=== PATIENT | female | born 1990 | race African-American/Black ===

== ENCOUNTER 2019-04-17 20:17 | Emergency (ER) | payer OTHER ==
[~2019-04-17] VITALS: Ht 154.9 cm; Wt 116.6 kg
[2019-04-17 22:12] LABS: ABSOLUTE NEUTROPHILS 6.8 thou/uL (1.4-8.2); BASOPHILS 0.9 % (0.0-2.0); EOSINOPHILS 2.4 % (0.0-3.0); HEMATOCRIT 35.6 % (37.0-47.0); LYMPHOCYTES 24.8 % (24.0-44.0); MCH 24.2 pg (26.0-34.0); MCHC 30.8 g/dL (28.0-37.0); MCV 78.5 fL (80.0-100.0); MONOCYTES 6.2 % (1.0-8.0); PLATELET COUNT 307 thou/uL (150-400); POLYS 65.7 % (36.0-66.0); RBC 4.54 mil/uL (4.20-5.00); RDW 14.5 % (10.5-14.5); WBC 10.4 thou/uL (4.0-11.0)
[2019-04-17 22:25] LABS: ANION GAP 10 mmol/L (7-16); BUN 16 mg/dL (7-18); CALCIUM 9.6 mg/dL (8.5-10.1); CHLORIDE 103 mmol/L (98-107); CO2 25 mmol/L (21-32); CREATININE 0.7 mg/dL (0.6-1.0); GLUCOSE 91 mg/dL (74-106); POTASSIUM 3.6 mmol/L (3.5-5.1); SODIUM 138 mmol/L (136-145)
[2019-04-17 22:36] LABS: ALBUMIN 3.6 g/dL (3.4-5.0); SGOT 16 U/L (15-37); SGPT 18 U/L (30-65); TOTAL BILIRUBIN 0.1 mg/dL (<0.1-1.0); TOTAL PROTEIN 7.9 g/dL (6.4-8.2); TROPONIN-I <0.06 ng/mL (<0.06)
[2019-04-17] MEDS ORDERED: OMEPRAZOLE40 MG PO (23:00)
[2019-04-17] MEDS ORDERED: CARAFATE 1 GM TA1 G1 PO (23:00)
[2019-04-17 23:49] VITALS: BP 140/93
--- NOTE | 2019-04-18 16:22 | EKG ---
[address] [address] ELECTROCARDIOGRAM REPORT Name: ANETA MCWILLIAMS Room #: DEP Patel#: [id number] Admission: 04/17/19 Attend Phys: Discharge: 04/17/19 Date of : 89 Report #: [id number] THIS REPORT FOR: //name// [facility] ED Test Date: 2019-04-17 Test Time: 20:39:53 Pat Name: ANETA MCWILLIAMS Department: Room: Gender: F [employer]rick [employer] Tender: MAUREEN : 1990 Requested By: Christopher Morin Order Number: [id number] MD: Juan Daniel Kelly Measurements Intervals [place] Rate: 67 P: 37 LA: 158 QRS: 63 QRSD: 84 T: 13 QT: 371 QTc: 392 Interpretive Statements Sinus rhythm Baseline wander No previous ECG available for comparison Electronically Signed On 04-18-2019 16:22:09 WELFARE DIRECTOR by Juan Daniel Kelly [email or web address] <ELECTRONICALLY SIGNED> By: Juan Daniel Kelly MD 04/18/19 1622 2039 38 Juan Daniel Kelly MD /EPI
== END 2019-04-17 23:49 | disposition home or self-care (01) ==
LOC: ER 20:17
PROVIDERS: Physician Assistant
DX: K29.70 Gastritis, unspecified, without bleeding (principal); R07.89 Other chest pain; Z88.6 Allergy status to analgesic agent